=== PATIENT | male | born 1995 | race Caucasian/White ===

== ENCOUNTER 2017-05-04 22:12 | Emergency (ER) | payer OTHER ==
[2017-05-04 22:16] VITALS: RESP 16
[2017-05-04] MEDS ORDERED: ACETAMINOPHEN 500 MG TAB PO ONE (22:40)
--- NOTE | 2017-05-04 22:42 | EDPHY ---
H & P Stated Complaint: Fever for 5 days Time Seen by Provider: 05/04/17 22:37 HPI/ROS: CHIEF COMPLAINT: Fever, sore throat HISTORY OF PRESENT ILLNESS: Patient is a 21-year-old boy who comes to the emergency department complaining of a fever for the last 5 days as well as body aches and a sore throat. No cough. No sinus congestion. No headache or neck pain. No shortness of breath or chest pain. He states that he has been exposed to someone with mononucleosis. No abdominal pain or tenderness. No vomiting or diarrhea. He did get a flu vaccine this year. REVIEW OF SYSTEMS: Constitutional: denies: chills, fever, recent illness, recent injury EENTM: See HPI Respiratory: denies: cough, shortness of breath Cardiac: denies: chest pain, irregular heart rate, lightheadedness, palpitations Gastrointestinal/Abdominal: denies: abdominal pain, diarrhea, nausea, vomiting, blood streaked stools Genitourinary: denies: dysuria, frequency, hematuria, pain Musculoskeletal: denies: joint pain, muscle pain Skin: denies: lesions, rash, jaundice, bruising Neurological: denies: headache, numbness, paresthesia, tingling, dizziness, weakness Hematologic/Lymphatic: denies: blood clots, easy bleeding, easy bruising Immunologic/allergic: denies: HIV/AIDS, transplant EXAM: GENERAL: Well-appearing, well-nourished and in no acute distress. HEAD: Atraumatic, normocephalic. EYES: Pupils equal round and reactive to light, extraocular movements intact, sclera anicteric, conjunctiva are normal. ENT: TMs normal, nares patent, oropharynx erythematous with exudate primarily on the right side no sign of abscess. Moist mucous membranes. NECK: Normal range of motion, supple without lymphadenopathy or JVD. LUNGS: Breath sounds clear to auscultation bilaterally and equal. No wheezes rales or rhonchi. HEART: Regular rate and rhythm without murmurs, rubs or gallops. ABDOMEN: Soft, nontender, normoactive bowel sounds. No guarding, no rebound. No masses appreciated. No splenomegaly BACK: No CVA tenderness, no spinal tenderness, step-offs or deformities EXTREMITIES: Normal range of motion, no pitting or edema. No clubbing or cyanosis. NEUROLOGICAL: Cranial nerves II through XII grossly intact. Normal speech, normal gait. 5/5 strength, normal movement in all extremities, normal sensation PSYCH: Normal mood, normal affect. SKIN: Warm, dry, normal turgor, no visible rashes or lesions. Source: Patient Exam Limitations: No limitations - Personal History Current Tetanus/Diphtheria Vaccine: Yes Current Tetanus Diphtheria and Acellular Pertussis (TDAP): Yes - Medical/Surgical History Hx Asthma: No Hx Chronic Respiratory Disease: No Hx Diabetes: No Hx Cardiac Disease: No Hx Renal Disease: No Hx Cirrhosis: No Hx Alcoholism: No Hx HIV/AIDS: No Hx Splenectomy or Spleen Trauma: No Other PMH: N/A - Family History Significant Family History: No pertinent family hx - Social History Smoking Status: Never smoked Alcohol Use: Sober Drug Use: None Constitutional: Initial Vital Signs Temperature (C) 37.8 C 05/04/17 22:14 Heart Rate 112 H 05/04/17 22:14 Respiratory Rate 16 05/04/17 22:14 Blood Pressure 129/67 H 05/04/17 22:14 O2 Sat (%) 99 05/04/17 22:14 O2 Delivery Mode Room Air Allergies/Adverse Reactions: No Known Allergies Allergy (Unverified 05/04/17 22:16) Home Medications: Medication Instructions Recorded Wellbutrin Sr 05/04/17 Medical Decision Making ED Course/Re-evaluation: 11:30 p.m. the patient's mono test is positive. He is feeling better after Tylenol and hydration. I encouraged him to rest and hydrate. He understands and agrees with this plan Differential Diagnosis: Partial list of the Differential diagnosis considered include but were not limited to; strep throat, mononucleosis, influenza and although unlikely based on the history and physical exam, I also considered sepsis, meningitis, endocarditis. I discussed these differential diagnoses and the plan with the patient as well as the usual and expected course. The patient understands that the diagnosis is provisional and that in medicine we are not always correct and that further workup is often warranted. Usual and customary warnings were given. All of the patient's questions were answered. The patient was instructed to return to the emergency department should the symptoms at all worsen or return, otherwise to followup with the physician as we discussed. - Data Points Laboratory Results: 05/04/17 05/04/17 05/04/17 Unknown 22:50 22:50 Monoscreen POSITIVE H (NEGATIVE) Group A Strep Screen NEGATIVE (NEGATIVE) Group A Strep DNA Pending Medications Given: Discontinued Medications Acetaminophen (Tylenol) 1,000 mg PO EDNOW ONE Stop: 05/04/17 22:41 Last Admin: 05/04/17 22:44 Dose: 1,000 mg Departure - Departure Disposition: Home, Routine, Self-Care Clinical Impression: Mononucleosis Condition: Good Instructions: Mononucleosis (ED) Referrals: NONE *PRIMARY CARE P,. [Primary Care Provider] - As per Instructions
[2017-05-05 00:08] VITALS: BP 120/76; PULSE 88; TEMP 100.4; O2SAT 97
== END 2017-05-05 00:09 | disposition home or self-care (01) ==
DX: B27.90 Infectious mononucleosis, unspecified without complication (principal)